=== PATIENT | female | born 1965 | race Caucasian/White ===

== ENCOUNTER 2022-12-25 17:15 | Inpatient (IN) | payer OTHER ==
[2022-12-25 18:04] VITALS: BMI 22.1
[2022-12-25] MEDS ORDERED: ACETAMINOPHEN 325 MG TABLET (FP) PO PRN (18:32)
[2022-12-25] MEDS ORDERED: P-EPHED 60MG/TRIPROLIDI 2.5MG TABLET PO PRN (18:32)
[2022-12-25] MEDS ORDERED: BENZOCAINE/MENTHOL (CHLORASEPTIC ) LOZENGE MM PRN (18:32)
[2022-12-25] MEDS ORDERED: POLYETHYLENE GLYCOL (HEALTHYLAX) 3350 17 GM PACKET PO PRN (18:32)
[2022-12-25] MEDS ORDERED: MAG HYDROX/AL HYDROX/SIMETH 30 ML UNIT-DOSE CUP PO PRN (18:32)
[2022-12-25] MEDS ORDERED: MAGNESIUM HYDROX 2400MG/30ML ORAL SUSPENSION 30 ML CUP PO PRN (18:32)
[2022-12-25] MEDS ORDERED: NICOTINE POLACRILEX 2 MG GUM BUC PRN (18:32)
[2022-12-25] MEDS ORDERED: IBUPROFEN 600 MG TABLET (FP) PO PRN (18:32)
[2022-12-25] MEDS ORDERED: MELATONIN 5 MG TABLETS PO PRN (18:32)
[2022-12-25] MEDS ORDERED: guaiFENesin 600 MG TABLET.ER (FP) PO PRN (18:32)
[2022-12-25] MEDS ORDERED: IBUPROFEN 400 MG TABLET (FP) PO PRN (18:32)
[2022-12-25] MEDS ORDERED: BENZONATATE 200 MG CAPSULE PO PRN (18:32)
[2022-12-25] MEDS ORDERED: NICOTINE 10 MG CARTRIDGE (INHALER) IH PRN (18:32)
[2022-12-25] MEDS ORDERED: LOPERAMIDE HCL 2 MG CAPSULE PO PRN (18:32)
[2022-12-25] MEDS ORDERED: NEOMYCIN/POLYMYXIN/BACITRACIN (TRIPLE ANTIBIOTIC) 28 GM OINTMENT TP PRN (18:35)
[2022-12-25] MEDS ORDERED: IBUPROFEN 400 MG TABLET (FP) PO ONE (19:28)
[2022-12-25] MEDS: NORTRIPTYLINE HCL 10 MG CAPSULE PO SCH (22:41)
[2022-12-25] MEDS: OXcarbazepine 300 MG TABLET (UD) PO SCH (22:45)
[2022-12-25] MEDS: THIAMINE HCL 100 MG TABLET (FP) PO SCH (22:45)
[2022-12-26] MEDS ORDERED: TUBERCULIN PPD 5 TU/0.1ML VIAL ID ONE (00:31)
[2022-12-26] MEDS: PRENATAL VITAMINS W/ FOLIC ACID TABLET (FP) PO SCH (11:13)
[2022-12-26] MEDS: NICOTINE 14 MG/24 HOURS TOPICAL PATCH TD SCH (11:13)
[2022-12-26] MEDS: PARoxetine HCL 20 MG TABLET PO SCH (11:16)
[2022-12-26 11:22] LABS: HEMATOCRIT 37.5 % (32.4-45.2); HEMOGLOBIN 12.8 GM/dL (10.7-15.3); MCH 29.5 pg (25.7-33.7); MCHC 34.2 g/dl (32.0-36.0); MEAN CELL VOLUME 86.5 fl (80-96); PLATELET COUNT 322 10^3/uL (134-434); RBC 4.33 M/mm3 (3.60-5.2); RDW 13.9 % (11.6-15.6); WHITE BLOOD COUNT 7.5 K/mm3 (4.0-10.0)
[2022-12-26 12:00] LABS: CALCIUM 8.6 mg/dL (8.5-10.1)
[2022-12-26 12:01] LABS: ALBUMIN 3.4 g/dl (3.4-5.0); BLOOD UREA NITROGEN 19.2 mg/dL (7-18)
[2022-12-26 12:02] LABS: SYPHILIS W/ RPR CONF NON-REACTIVE (NONREACTIVE)
[2022-12-26 12:05] LABS: CREATININE 0.8 mg/dL (0.55-1.3)
[2022-12-26 12:06] LABS: TOT PROT 6.4 g/dl (6.4-8.2)
[2022-12-26 12:07] LABS: BILIRUBIN,TOTAL 0.1 mg/dL (0.2-1)
[2022-12-26] MEDS: NORTRIPTYLINE HCL 10 MG CAPSULE PO SCH ×2 (13:24→21:30)
[2022-12-26] MEDS: OXcarbazepine 300 MG TABLET (UD) PO SCH (21:30)
[2022-12-26] MEDS: THIAMINE HCL 100 MG TABLET (FP) PO SCH (21:31)
[2022-12-26 22:42] VITALS: RESP 18
[2022-12-27] MEDS: PRENATAL VITAMINS W/ FOLIC ACID TABLET (FP) PO SCH (10:34)
[2022-12-27] MEDS: NORTRIPTYLINE HCL 10 MG CAPSULE PO SCH ×2 (10:34→21:09)
[2022-12-27] MEDS: NICOTINE 14 MG/24 HOURS TOPICAL PATCH TD SCH (10:34)
[2022-12-27] MEDS: PARoxetine HCL 20 MG TABLET PO SCH (10:34)
[2022-12-27] MEDS: THIAMINE HCL 100 MG TABLET (FP) PO SCH (21:10)
[2022-12-27] MEDS: OXcarbazepine 300 MG TABLET (UD) PO SCH (21:10)
[2022-12-28 06:48] VITALS: TEMP 98.3
[2022-12-28] MEDS: PRENATAL VITAMINS W/ FOLIC ACID TABLET (FP) PO SCH (10:44)
[2022-12-28] MEDS: PARoxetine HCL 20 MG TABLET PO SCH (10:44)
[2022-12-28] MEDS: NICOTINE 14 MG/24 HOURS TOPICAL PATCH TD SCH (10:44)
[2022-12-28] MEDS: NORTRIPTYLINE HCL 10 MG CAPSULE PO SCH ×2 (10:47→21:28)
[2022-12-28 11:32] LABS: URINE APPEARANCE CLEAR; URINE BILIRUBIN NEGATIVE (NEGATIVE); URINE COLOR YELLOW; URINE GLUCOSE (UA) NEGATIVE (NEGATIVE); URINE KETONE NEGATIVE (NEGATIVE); URINE LEUK ESTERASE 1+ (NEGATIVE); URINE NITRITE NEGATIVE (NEGATIVE); URINE PROTEIN NEGATIVE (NEGATIVE); URINE UROBILINOGEN 0.2 mg/dL (0.2-1.0)
[2022-12-28 11:56] LABS: EPI CELLS 10.4 /uL (0-25.1); URINE BACTERIA 119.3 /uL (0-1359); URINE RBC 6.2 /uL (0-23.9); URINE WBC FEW /uL (0-25.8)
[2022-12-28] MEDS: THIAMINE HCL 100 MG TABLET (FP) PO SCH (21:26)
[2022-12-28] MEDS: OXcarbazepine 300 MG TABLET (UD) PO SCH (21:28)
[2022-12-28 22:03] VITALS: BP 114/63; PULSE 78
[2022-12-29] MEDS: NICOTINE 14 MG/24 HOURS TOPICAL PATCH TD SCH (10:38)
[2022-12-29] MEDS: PRENATAL VITAMINS W/ FOLIC ACID TABLET (FP) PO SCH (10:38)
[2022-12-29] MEDS: NORTRIPTYLINE HCL 10 MG CAPSULE PO SCH (10:39)
[2022-12-29] MEDS: PARoxetine HCL 20 MG TABLET PO SCH (10:39)
== END 2022-12-29 19:29 | disposition left against medical advice (07) | DRG 894 ==
LOC: YASAS 17:15 → Y5N 22:54
PROVIDERS: ADMIT Allergy & Immunology; ATTEND Family Medicine
PROC: HZ42ZZZ Group Counseling for Substance Abuse Treatment, Cognitive-Behavioral (ICD-10-PCS; principal; 2022-12-25)
DX: F14.20 Cocaine dependence, uncomplicated (principal); I69.854 Hemiplegia and hemiparesis following other cerebrovascular disease affecting left non-dominant side; F10.20 Alcohol dependence, uncomplicated; F31.9 Bipolar disorder, unspecified; F41.9 Anxiety disorder, unspecified; F43.10 Post-traumatic stress disorder, unspecified; R26.89 Other abnormalities of gait and mobility; R76.11 Nonspecific reaction to tuberculin skin test without active tuberculosis; Z28.310 Unvaccinated for COVID-19; Z28.9 Immunization not carried out for unspecified reason; Z56.0 Unemployment, unspecified; Z59.00 Homelessness unspecified
CPT/HCPCS: 36415; 71046-TC-FY; 80053; 81003; 81025; 85027; 86780; 86803; 87811; C9803-CS; U0003; U0005

== ENCOUNTER 2023-11-25 17:12 | Inpatient (IN) | payer OTHER ==
[2023-11-25 18:06] VITALS: BMI 25.3
[2023-11-25] MEDS ORDERED: P-EPHED 60MG/TRIPROLIDI 2.5MG TABLET PO PRN (19:59)
[2023-11-25] MEDS ORDERED: IBUPROFEN 400 MG TABLET (FP) PO PRN (19:59)
[2023-11-25] MEDS ORDERED: MAG HYDROX/AL HYDROX/SIMETH 30 ML UNIT-DOSE CUP PO PRN (19:59)
[2023-11-25] MEDS ORDERED: IBUPROFEN 600 MG TABLET (FP) PO PRN (19:59)
[2023-11-25] MEDS ORDERED: POLYETHYLENE GLYCOL (HEALTHYLAX) 3350 17 GM PACKET PO PRN (19:59)
[2023-11-25] MEDS ORDERED: BENZONATATE 200 MG CAPSULE PO PRN (19:59)
[2023-11-25] MEDS ORDERED: MAGNESIUM HYDROX 2400MG/30ML ORAL SUSPENSION 30 ML CUP PO PRN (19:59)
[2023-11-25] MEDS ORDERED: BENZOCAINE/MENTHOL (CHLORASEPTIC ) LOZENGE MM PRN (19:59)
[2023-11-25] MEDS ORDERED: guaiFENesin 600 MG TABLET.ER (FP) PO PRN (19:59)
[2023-11-25] MEDS ORDERED: LOPERAMIDE HCL 2 MG CAPSULE PO PRN (19:59)
[2023-11-25] MEDS: MELATONIN 5 MG TABLETS PO SCH (22:56)
[2023-11-25] MEDS: OXcarbazepine 300 MG TABLET (UD) PO ONE (22:56)
[2023-11-25] MEDS: DIVALPROEX SODIUM 250 MG TABLET E.C. PO ONE (22:56)
[2023-11-25] MEDS: THIAMINE HCL 100 MG TABLET (FP) PO SCH (22:56)
[2023-11-25] MEDS: ATORVASTATIN CA 80 MG TABLET (FP) PO SCH (22:57)
[2023-11-26] MEDS: ACETAMINOPHEN 325 MG TABLET (FP) PO PRN (10:44)
[2023-11-26] MEDS: ASPIRIN COATED 81 MG TABLET.EC PO SCH (10:45)
[2023-11-26] MEDS: hydrOXYzine PAMOATE 25 MG CAPSULE (FP) PO PRN (10:45)
[2023-11-26] MEDS: CLOPIDOGREL BISULFATE 75 MG TABLET (FP) PO SCH (10:45)
[2023-11-26] MEDS: PRENATAL VITAMINS W/ FOLIC ACID TABLET (FP) PO SCH (10:46)
[2023-11-26] MEDS: PARoxetine HCL 20 MG TABLET PO SCH (11:47)
[2023-11-26 12:12] LABS: PH,URINE 5.5 (5.0-8.0); URINE APPEARANCE CLEAR; URINE BILIRUBIN NEGATIVE (NEGATIVE); URINE COLOR YELLOW; URINE GLUCOSE (UA) NEGATIVE (NEGATIVE); URINE KETONE NEGATIVE (NEGATIVE); URINE LEUK ESTERASE NEGATIVE (NEGATIVE); URINE NITRITE NEGATIVE (NEGATIVE); URINE PROTEIN NEGATIVE (NEGATIVE); URINE UROBILINOGEN 0.2 mg/dL (0.2-1.0)
[2023-11-26] MEDS ORDERED: ATORVASTATIN CA 40 MG TABLET (FP) ONE (20:42)
[2023-11-26] MEDS: OXcarbazepine 300 MG TABLET (UD) PO SCH (21:33)
[2023-11-26] MEDS: NORTRIPTYLINE HCL 10 MG CAPSULE PO SCH (22:18)
[2023-11-27] MEDS ORDERED: ATORVASTATIN CA 40 MG TABLET (FP) ONE (19:59)
[2023-11-28] MEDS: OXcarbazepine 150 MG TABLET (UD) PO SCH (10:08)
[2023-11-28 12:51] LABS: POTASSIUM 4.5 mmol/L (3.5-5.1)
[2023-11-28 12:53] LABS: BASO % 0.6 % (0-2.0); EOS % 4.3 % (0-4.5); HEMATOCRIT 35.9 % (32.4-45.2); HEMOGLOBIN 12.3 GM/dL (10.7-15.3); MCH 30.1 pg (25.7-33.7); MCHC 34.3 g/dl (32.0-36.0); MEAN CELL VOLUME 87.7 fl (80-96); MEAN PLT VOLUME 7.6 fl (7.5-11.1); MONO % 5.4 % (3.8-10.2); NEUT % 62.7 % (42.8-82.8); PLATELET COUNT 244 10^3/uL (134-434); RBC 4.09 M/mm3 (3.60-5.2); RDW 13.7 % (11.6-15.6); WHITE BLOOD COUNT 7.1 K/mm3 (4.0-10.0)
[2023-11-28 13:00] LABS: ALBUMIN 3.5 g/dl (3.4-5.0); BLOOD UREA NITROGEN 19.9 mg/dL (7-18); CALCIUM 9.1 mg/dL (8.5-10.1); CREATININE 0.7 mg/dL (0.55-1.3); MAGNESIUM 2.3 mg/dL (1.8-2.4)
[2023-11-28 13:01] LABS: TOT PROT 6.5 g/dl (6.4-8.2)
[2023-11-28 13:11] LABS: BILIRUBIN,TOTAL 0.2 mg/dL (0.2-1)
[2023-11-28] MEDS ORDERED: ATORVASTATIN CA 40 MG TABLET (FP) ONE (20:09)
[2023-11-29] MEDS ORDERED: ATORVASTATIN CA 40 MG TABLET (FP) ONE (19:51)
[2023-11-30] MEDS ORDERED: ATORVASTATIN CA 40 MG TABLET (FP) ONE (19:51)
[2023-12-01] MEDS: NICOTINE 14 MG/24 HOURS TOPICAL PATCH TD SCH (15:50)
[2023-12-01] MEDS: NICOTINE POLACRILEX 2 MG GUM BUC PRN (15:52)
[2023-12-01] MEDS ORDERED: ATORVASTATIN CA 40 MG TABLET (FP) ONE (19:47)
[2023-12-01] MEDS: BACLOFEN 10 MG TABLET (FP) PO SCH (21:19)
[2023-12-02] MEDS ORDERED: ATORVASTATIN CA 40 MG TABLET (FP) ONE (19:42)
[2023-12-02] MEDS: CLOPIDOGREL BISULFATE 75 MG TABLET (FP) PO SCH (21:26)
[2023-12-03 07:24] VITALS: RESP 18
[2023-12-03] MEDS ORDERED: ATORVASTATIN CA 40 MG TABLET (FP) ONE (20:34)
[2023-12-04] MEDS ORDERED: ATORVASTATIN CA 40 MG TABLET (FP) ONE (19:48)
[2023-12-05] MEDS ORDERED: ATORVASTATIN CA 40 MG TABLET (FP) ONE (20:21)
[2023-12-06] MEDS ORDERED: ATORVASTATIN CA 40 MG TABLET (FP) ONE (19:47)
[2023-12-07] MEDS ORDERED: ATORVASTATIN CA 40 MG TABLET (FP) ONE (20:28)
[2023-12-07] MEDS: BACLOFEN 10 MG TABLET (FP) PO SCH (21:59)
[2023-12-08 07:02] VITALS: TEMP 97.6
[2023-12-08] MEDS ORDERED: ATORVASTATIN CA 40 MG TABLET (FP) ONE (19:53)
[2023-12-09 06:54] VITALS: BP 141/73; PULSE 84
== END 2023-12-09 11:15 | disposition left against medical advice (07) | DRG 894 ==
LOC: YASAS 17:12 → Y3NR 21:57 → Y5N 11-26 13:57
PROVIDERS: ADMIT Allergy & Immunology; ATTEND Psychiatry & Neurology Pain Medicine
PROC: HZ42ZZZ Group Counseling for Substance Abuse Treatment, Cognitive-Behavioral (ICD-10-PCS; principal; 2023-11-25)
DX: F14.20 Cocaine dependence, uncomplicated (principal); I69.854 Hemiplegia and hemiparesis following other cerebrovascular disease affecting left non-dominant side; F10.20 Alcohol dependence, uncomplicated; F13.10 Sedative, hypnotic or anxiolytic abuse, uncomplicated; F17.210 Nicotine dependence, cigarettes, uncomplicated; I95.9 Hypotension, unspecified; F91.8 Other conduct disorders; Z91.199 Patient's noncompliance with other medical treatment and regimen due to unspecified reason; Z86.59 Personal history of other mental and behavioral disorders
CPT/HCPCS: 36415; 80053; 80164; 80305; 81003; 82652; 83735; 85025; 87635; 87811; 93005; 93010; J0475